=== PATIENT | male | born 1985 | race Caucasian/White ===

== ENCOUNTER 2016-08-14 02:38 | Emergency (ER) | payer SELFPAY ==
[~2016-08-14] VITALS: Ht 180.3 cm; Wt 93.2 kg
[~2016-08-14 02:38] MED LIST: CALC500T7 PO; FLUT9.9S NSEACH; OMEP20CA12 PO; POLY119P5 PO; PRAZ600T2 PO
[2016-08-14] MEDS ORDERED: PRD20T PO (04:53)
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
[2016-08-14 05:10] VITALS: BP 118/77
--- NOTE | 2016-08-14 07:03 | Diagnostic Imaging Report ---
INDICATION: Right-sided rib pain. EXAMINATION: PA and lateral views of the chest. FINDINGS: The heart size and vascularity are normal. Lungs are clear. There is no effusion. There is no acute bony abnormality. IMPRESSION: No acute abnormality is seen. Dictated by: Dictated on workstation # [id number]
--- NOTE | 2016-08-14 07:04 | Diagnostic Imaging Report ---
INDICATION: Right-sided rib pain. FINDINGS: Three views of the right ribs show no fracture or other bony abnormality. There is no effusion or pneumothorax. IMPRESSION: Normal right ribs. Dictated by: Dictated on workstation # [id number]
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
== END 2016-08-14 05:10 | disposition home or self-care (01) ==
LOC: EDUNIT# 02:38 → ER 02:42
DX: R07.89 Other chest pain (principal); R05 Cough
CPT/HCPCS: 71020; 71100; 99285

== ENCOUNTER 2019-01-01 08:25 | Emergency (ER) | payer OTHER ==
[~2019-01-01] VITALS: Ht 180.3 cm; Wt 93.0 kg
[~2019-01-01 08:25] MED LIST changes: -OMEP20CA12 PO; +OMEP20CA13 PO; +PRD20T PO
[2019-01-01] MEDS ORDERED: KETOROLAC 30 MG/ML VIAL IM ONE (08:45)
[2019-01-01] MEDS ORDERED: ACETAMINOPHEN 500 MG TAB (TYLENOL) PO ONE (08:45)
[2019-01-01] MEDS ORDERED: CYCL10TA9 PO (08:48)
--- NOTE | 2019-01-01 08:48 | ED Back Pain ---
General Chief Complaint: Back Problems Stated Complaint: BACK PAIN Source of Information: Patient Exam Limitations: No Limitations History of Present Illness Date Seen by Provider: Jan 01, 2019 Time Seen by Provider: 08:34 Initial Comments The patient presents to ER by private conveyance with chief complaint that yesterday while at work he was lifting a large box and it slipped out of his hands and he experienced some severe pain in his low back. He denies a history of back problems, back, or surgeries to his back. 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 He does not have a back brace and has not taken any ibuprofen Tylenol or other pain meds. No topical creams. His girlfriend was planning to bring him some icy hot. His works at since it happened at work he needed to come the ER to be checked out by occupational. No incontinence of bowel or bladder, numbness or tingling or weakness/falls. He did have some pain that radiated across his low back and occasionally down his left buttock. Worse with bending over. Allergies and Home Medications Allergies Coded Allergies: No Known Drug Allergies (Unverified , 12/29/14) Home Medications Cyclobenzaprine HCl 10 Mg Tablet, 10 MG PO Q8H PRN for SPASMS Prescribed by: SANJUANITA AG on 01/01/19 0848 Prednisone 20 Mg Tab, 20 MG PO DAILY Prescribed by: ANA BLEDSOE on 08/14/16 0453 Patient Home Medication List Home Medication List Reviewed: Yes Review of Systems Constitutional: No chills, No diaphoresis EENTM: No ear discharge, No ear pain Respiratory: No cough, No phlegm, No short of breath Cardiovascular: No chest pain, No edema Gastrointestinal: No abdominal pain, No nausea Genitourinary: No discharge, No dysuria Musculoskeletal: back pain; No joint pain Past Usacbhs-Rjgjdy-Orzlwe Hx Patient Social History Alcohol Use: Denies Use Recreational Drug Use: No Smoking Status: Current Everyday Smoker Type Used: Cigarettes Recent Foreign Travel: No Contact w/Someone Who Travel: No Recent Hopitalizations: No Immunizations Up To Date Tetanus Booster (TDap): Unknown Seasonal Allergies Seasonal Allergies: Yes Past Medical History Asthma Currently Using CPAP: No Currently Using BIPAP: No Reproductive Disorders: No Fractures Family Medical History Heart Disease, Cancer Physical Exam Vital Signs Vital Signs - First Documented 01/01/19 08:35 Temp 98.9 Pulse 71 Resp 18 B/P (MAP) 116/77 (90) O2 Delivery Room Air Capillary Refill : Height, Weight, BMI Height: 5'11.00" Weight: 205lbs. 6.0oz. 93.929352sg; 32.0 BMI Method:Stated General Appearance: WD/WN, Mild Distress HEENT: PERRL/EOMI, Moist Mucous Membranes Neck: Full Range of Motion, Normal Inspection Cardiovascular: Regular Rate, Rhythm, No Edema, Normal Peripheral Pulses Respiratory: No Accessory Muscle Use, No Respiratory Distress Back: Normal Inspection, No CVA Tenderness (paraVertebral lumbar), Muscle Spasm, Vertebral Tenderness (lumbar) Extremity: Normal Capillary Refill, Normal Inspection Neurologic/Psychiatric: Alert, Oriented x3, No Motor/Sensory Deficits, Other (normal gait) Progress/Results/Core Measures Results/Orders My Orders Orders - SANJUANITA AG Ketorolac Injection (Toradol Injection) (01/01/19 08:45) Acetaminophen Tablet (Tylenol Tablet) (01/01/19 08:45) Medications Given in ED Current Medications Medications Dose Ordered Sig/Delisa Route Start Time Stop Time Status Last Admin Dose Admin Acetaminophen 1,000 mg ONCE ONCE PO 01/01/19 08:45 01/01/19 08:46 DC 01/01/19 08:53 1,000 MG Ketorolac Tromethamine 60 mg ONCE ONCE IM 01/01/19 08:45 01/01/19 08:46 DC 01/01/19 08:54 60 MG Vital Signs/I&O 01/01/19 08:35 Temp 98.9 Pulse 71 Resp 18 B/P (MAP) 116/77 (90) O2 Delivery Room Air Progress Progress Note : Time: 08:45 Progress Note Toradol Tylenol and prescription for muscle relaxants. We'll encourage back brace, heating pads and topical creams. Take today off and follow-up tomorrow on a reduced work schedule. Departure Impression Primary Impression: Lumbago Qualified Codes: M54.5 - Low back pain Disposition: 01 HOME, SELF-CARE Condition: Stable Departure-Patient Inst. Decision time for Depature: 08:46 Referrals: NO,LOCAL PHYSICIAN (PCP/Family) Primary Care Physician Patient Instructions: Low Back Pain (DC) Add. Discharge Instructions: Continue to use Tylenol 1000 mg every 8 hours as necessary for pain. You can also use heating pads, topical creams and a back brace for relief. Start using the naproxen twice daily for the next 1-2 weeks until your pain is improved. If you're not seeing significant improvement in 1-2 weeks follow-up with either your primary care doctor or occupational health. If you're having muscle spasms in your back you can take one tablet of the cyclobenzaprine every 8 hours as needed. It may cause drowsiness and should not be next with alcohol. No lifting, pushing or pulling over 20 pounds until 01/08/19. All discharge instructions reviewed with patient and/or family. Voiced understanding. Scripts Cyclobenzaprine HCl (Cyclobenzaprine HCl) 10 Mg Tablet 10 MG PO Q8H PRN for SPASMS, #15 TAB 0 Refills Prov: SANJUANITA AG 01/01/19 Work/School Note: Work Release Form Date Seen in the Emergency Department: Jan 01, 2019 Return to Work: Jan 02, 2019 Restrictions: Need Release from Doctor Other Restrictions Listed Below: No pushing, lifting, pulling above 20 pounds until 01/08/19. SANJUANITA AG Jan 01, 2019 08:48
[2019-01-01 09:08] VITALS: BP 116/77
== END 2019-01-01 09:05 | disposition home or self-care (01) ==
LOC: EDUNIT# 08:25 → ER 08:27
DX: M54.5 Low back pain (principal); F17.210 Nicotine dependence, cigarettes, uncomplicated; Z82.49 Family history of ischemic heart disease and other diseases of the circulatory system; X50.0XXA Overexertion from strenuous movement or load, initial encounter; Y92.59 Other trade areas as the place of occurrence of the external cause; Y99.0 Civilian activity done for income or pay
CPT/HCPCS: 99284

== ENCOUNTER 2020-01-16 04:59 | Emergency (ER) | payer OTHER ==
[~2020-01-16] VITALS: Ht 180 cm; Wt 97.0 kg
[~2020-01-16 04:59] MED LIST changes: +CYCL10TA9 PO; -OMEP20CA13 PO; +OMEP20CA18 PO
[2020-01-16 05:11] VITALS: BP 119/71
[2020-01-16] MEDS: diphenhydrAMINE 25 MG TAB (BENADRYL) PO ONE (05:20)
--- NOTE | 2020-01-16 05:21 | ED Integumentary General ---
General Chief Complaint: Allergic Reaction Stated Complaint: ALLERGIC RXN Source: patient Exam Limitations: no limitations History of Present Illness Date Seen by Provider: Jan 16, 2020 Time Seen by Provider: 05:02 Initial Comments patient presents to ER by private conveyance from home with chief complaint he is having itching all over this evening. He thinks allergic reaction may be related to some zinc or paint. He is not having any shortness of breath, wheezing, coughing or constriction in the throat. No prior history of anaphylaxis or allergies. Allergies and Home Medications Allergies Coded Allergies: No Known Drug Allergies (Unverified , 12/29/14) Home Medications Cyclobenzaprine HCl 10 Mg Tablet, 10 MG PO Q8H PRN for SPASMS Prescribed by: SANJUANITA AG on 01/01/19 0848 Prednisone 20 Mg Tab, 20 MG PO DAILY Prescribed by: ANA BLEDSOE on 08/14/16 0453 Patient Home Medication List Home Medication List Reviewed: Yes Review of Systems Review of Systems Constitutional: No fever, No malaise EENTM: No ear discharge, No ear pain Respiratory: No cough, No short of breath, No stridor, No wheezing Cardiovascular: No edema, No Hx of Intervention, No palpitations Gastrointestinal: No abdominal pain, No nausea, No vomiting Genitourinary: No discharge, No dysuria Skin: see HPI; No change in color; pruritus; No rash All Other Systems Reviewed Negative Unless Noted: Yes Past Vkpjacr-Khenmu-Gzwqfq Hx Patient Social History Recreational Drug Use: No Smoking Status: Current Everyday Smoker Type Used: Cigarettes Recent Foreign Travel: No Contact w/Someone Who Travel: No Recent Hopitalizations: No Immunizations Up To Date Tetanus Booster (TDap): Unknown Seasonal Allergies Seasonal Allergies: Yes Past Medical History Surgeries: No Respiratory: Yes Asthma Currently Using CPAP: No Currently Using BIPAP: No Cardiac: No Neurological: No Reproductive Disorders: No Genitourinary: No Gastrointestinal: No Musculoskeletal: Yes Fractures Endocrine: No HEENT: No Loss of Vision: Denies Hearing Impairment: Denies Cancer: No Psychosocial: No Integumentary: No Blood Disorders: No Family Medical History Heart Disease, Cancer Physical Exam Vital Signs Vital Signs - First Documented 01/16/20 05:11 Temp 36.7 Pulse 78 Resp 20 B/P (MAP) 119/71 (87) O2 Delivery Room Air Capillary Refill : General Appearance: WD/WN, no apparent distress HEENT: PERRL/EOMI, TMs normal, pharynx normal Neck: full range of motion, normal inspection Cardiovascular: normal peripheral pulses, regular rate, rhythm Respiratory: lungs clear, normal breath sounds, no respiratory distress, no accessory muscle use Extremities: normal range of motion, no pedal edema, normal capillary refill Neurologic/Psychiatric: alert, oriented x 3, other (irregular, jerking, tweaking-like motions bilaterally) Skin: normal color, warm/dry, other (intense pruritus without any erythema, hives, rash.) Progress/Results/Core Measures Results/Orders My Orders Orders - SANJUANITA AG Diphenhydramine Tablet (Benadryl Tablet) (01/16/20 05:15) Medications Given in ED Current Medications Medications Dose Ordered Sig/Delisa Route Start Time Stop Time Status Last Admin Dose Admin Diphenhydramine HCl 50 mg ONCE ONCE PO 01/16/20 05:15 01/16/20 05:16 DC 01/16/20 05:20 50 MG Vital Signs/I&O 01/16/20 05:11 Temp 36.7 Pulse 78 Resp 20 B/P (MAP) 119/71 (87) O2 Delivery Room Air Progress Progress Note #1: Time: 05:23 Progress Note no airway involvement. Intense pruritus all over without erythema or rash. 50 mg Benadryl ordered. Patient declined any shots. Progress Note #2: Time: 05:36 Progress Note the patient and some marginal improvement in symptoms. 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 we have given return precautions and instructions to clean his skin. The patient does not have any airway compromise at this time however he was encouraged to return to the ER should he start to have difficulty breathing. Patient states that if he has a hard time breathing then he is going to fight everyone. Departure Impression Primary Impression: Generalized pruritus Disposition: 01 HOME, SELF-CARE Condition: Stable Departure-Patient Inst. Decision time for Depature: 05:38 Referrals: NO,LOCAL PHYSICIAN (PCP/Family) Primary Care Physician Patient Instructions: Itchy Skin Add. Discharge Instructions: loratadine/Claritin or Zyrtec/cetirizine 10 mg daily until your symptoms ceased. Benadryl 1-2 tablets every 6 hours as necessary for breakthrough itching. famotidine 20 mg twice a day. Hypoallergenic lotion such as Eucerin, Nutraderm, CeraVe. All discharge instructions reviewed with patient and/or family. Voiced understanding. Work/School Note: Work Release Form Date Seen in the Emergency Department: Jan 16, 2020 Return to Work: Jan 17, 2020 Restrictions: No Restrictions SANJUANITA AG Jan 16, 2020 05:21
== END 2020-01-16 05:35 | disposition home or self-care (01) ==
LOC: EDUNIT# 04:59 → ER 05:04
DX: L29.8 Other pruritus (principal); J45.909 Unspecified asthma, uncomplicated; F17.210 Nicotine dependence, cigarettes, uncomplicated; Z79.52 Long term (current) use of systemic steroids; Z82.49 Family history of ischemic heart disease and other diseases of the circulatory system
CPT/HCPCS: 99283